=== PATIENT | female | born 1990 | race Hispanic/Latino ===

== ENCOUNTER → 2022-06-11 | Outpatient (CLI) | payer OTHER ==
[~2022-06-11] VITALS: Ht 165.1 cm; Wt 91.9 kg
[~2022-06-11] MED LIST: HOME MED LIST COMPLETE! XX SCH; PRENTAB9 PO
[2022-06-11 13:14] VITALS: BP 119/74
[2022-06-11 14:06] LABS: HEMATOCRIT 31.6 % (36.0-47.0); HEMOGLOBIN 10.6 g/dl (12.0-15.5); MEAN CORPUSCULAR HEMOGLOBIN 28.2 pg (27.0-33.0); MEAN CORPUSCULAR HGB CONC 33.5 g/dl (32.0-36.5); PLATELET COUNT, AUTOMATED 243 10^3/uL (150-450); RED BLOOD COUNT 3.76 10^6/uL (4.00-5.40); WHITE BLOOD COUNT 10.2 10^3/uL (4.0-10.0)
== END ==
LOC: M LDO 12:51
PROVIDERS: ATTEND Obstetrics & Gynecology
DX: O30.043 Twin pregnancy, dichorionic/diamniotic, third trimester (principal); O9A.213 Injury, poisoning and certain other consequences of external causes complicating pregnancy, third trimester; S30.0XXA Contusion of lower back and pelvis, initial encounter; W10.8XXA Fall (on) (from) other stairs and steps, initial encounter; Y92.9 Unspecified place or not applicable; O09.813 Supervision of pregnancy resulting from assisted reproductive technology, third trimester; Z3A.33 33 weeks gestation of pregnancy
CPT/HCPCS: 36415; 59025; 76815; 76820; 85027; 85460; G0463

== ENCOUNTER → 2022-06-26 | Outpatient (CLI) | payer OTHER ==
[~2022-06-26] MED LIST changes: -HOME MED LIST COMPLETE! XX SCH; +TUMS500C PO
== END ==
LOC: M WHC 13:08
PROVIDERS: ATTEND Obstetrics & Gynecology
DX: O30.043 Twin pregnancy, dichorionic/diamniotic, third trimester (principal); Z3A.33 33 weeks gestation of pregnancy

== ENCOUNTER 2022-06-28 12:11 | Outpatient (CLI) | payer OTHER ==
[2022-06-28] VITALS (7 sets, daily range): BP systolic 111–119; BP diastolic 53–82
[~2022-06-28] VITALS: Ht 165.1 cm; Wt 93.3 kg
[~2022-06-28 12:11] MED LIST changes: -TUMS500C PO
[2022-06-28] MEDS ORDERED: TUMS500C PO (13:16)
[2022-06-28] MEDS ORDERED: HOME MED LIST COMPLETE! XX SCH (13:20)
[2022-06-28 13:32] LABS: HEMATOCRIT 29.9 % (36.0-47.0); MEAN CORPUSCULAR HEMOGLOBIN 27.2 pg (27.0-33.0); MEAN CORPUSCULAR HGB CONC 33.4 g/dl (32.0-36.5); MEAN CORPUSCULAR VOLUME 81.5 fl (80.0-96.0); PLATELET COUNT, AUTOMATED 233 10^3/uL (150-450); RED BLOOD COUNT 3.67 10^6/uL (4.00-5.40); WHITE BLOOD COUNT 9.1 10^3/uL (4.0-10.0)
[2022-06-28 14:54] LABS: HEPATITIS B SURFACE ANTIGEN NEGATIVE (NEGATIVE); HIV 1&2 SCREEN CENTAUR NEGATIVE (NEGATIVE)
[2022-06-28] MEDS: BETAMETHASONE SOLUSPAN 6MG/ML 5ML VIAL (J0702 PER 3MG) IM SCH (16:07)
[2022-06-28] MEDS ORDERED: propofoL 200 MG/20 ML VIAL As Ordered ONE ×10 (19:20→20:03)
[2022-06-28] MEDS ORDERED: fentaNYL 100 MCG/2 ML INJECTION IV PRN (20:15)
[2022-06-28] MEDS ORDERED: LR 1,000 ML IV SCH (20:15)
[2022-06-28] MEDS ORDERED: oxyCODONE 5MG TAB PO PRN (20:15)
[2022-06-28] MEDS ORDERED: ONDANSETRON 4MG 2ML VIAL IV PRN (20:15)
[2022-06-28] MEDS ORDERED: TERBUTALINE SULFATE 1 MG/ML VIAL (J3105) SC STA (22:47)
[2022-06-29] VITALS (10 sets, daily range): BP systolic 90–125; BP diastolic 51–66
[2022-06-29] MEDS ORDERED: ONDANSETRON 4MG 2ML VIAL IV STA (04:03)
[2022-06-29] MEDS ORDERED: PROMETHAZINE 25MG/ML 1ML VIAL IV ONE (05:05)
[2022-06-29] MEDS ORDERED: LACTATED RINGER'S 1000 ML IV STA (10:38)
[2022-06-29] MEDS ORDERED: TERBUTALINE SULFATE 1 MG/ML VIAL (J3105) SC ONE (10:45)
[2022-06-29] MEDS: BETAMETHASONE SOLUSPAN 6MG/ML 5ML VIAL (J0702 PER 3MG) IM SCH (15:53)
== END 2022-06-29 16:05 | disposition home or self-care (01) ==
LOC: M LDO 12:11
PROVIDERS: ATTEND Registered Nurse
DX: O30.043 Twin pregnancy, dichorionic/diamniotic, third trimester (principal); O34.33 Maternal care for cervical incompetence, third trimester; Z3A.35 35 weeks gestation of pregnancy
CPT/HCPCS: 36415; 59025; 59871; 76815; 85027; 86762; 87340; 87389; 87635; 96361; 96372; 96374; 96375; G0378; G0463; J0702; J2405; J2550; J3105

== ENCOUNTER 2022-07-01 01:11 | Outpatient (CLI) | payer OTHER ==
[~2022-07-01] VITALS: Ht 165.1 cm; Wt 96.2 kg
[~2022-07-01 01:11] MED LIST changes: +TUMS500C PO
[2022-07-01] MEDS ORDERED: HOME MED LIST COMPLETE! XX SCH (01:15)
[2022-07-01 01:22] VITALS: BP 134/73
[2022-07-01 02:13] VITALS: BP 115/64
== END 2022-07-01 04:19 | disposition home or self-care (01) ==
LOC: M LDO 01:11
PROVIDERS: ATTEND Obstetrics & Gynecology
DX: O47.03 False labor before 37 completed weeks of gestation, third trimester (principal); Z3A.35 35 weeks gestation of pregnancy; O30.043 Twin pregnancy, dichorionic/diamniotic, third trimester
CPT/HCPCS: 59025; 76815; G0463

== ENCOUNTER 2022-07-02 03:45 | Inpatient (IN) | payer OTHER ==
[2022-07-02] VITALS (47 sets, daily range): BP systolic 94–157; BP diastolic 53–110
[~2022-07-02] VITALS: Ht 165.1 cm; Wt 96.2 kg
[2022-07-02] MEDS ORDERED: PENICILLIN G POTASSIUM 5 MU IV 5 MU in D5W MINI-BAG PLUS 100 ML IV STA (03:58)
[2022-07-02] MEDS ORDERED: LACTATED RINGER'S 1000 ML IV STA (03:58)
[2022-07-02] MEDS ORDERED: METHYLERGONOVINE MALEATE 0.2 MG/ML VIAL (J2210) IM PRN (04:00)
[2022-07-02] MEDS ORDERED: LR 1,000 ML IV SCH (04:00)
[2022-07-02] MEDS ORDERED: OXYTOCIN DRIP 30 UNITS in IV 1 EA IV PRN ×4 (04:00)
[2022-07-02] MEDS ORDERED: TRANEXAMIC ACID INJection 1,000 MG in NS 100 ML IV PRN (04:00)
[2022-07-02] MEDS ORDERED: LIDOCAINE 1% MDV 20ML VIAL INFIL PRN (04:00)
[2022-07-02 04:54] LABS: HEMOGLOBIN 10.3 g/dl (12.0-15.5); MEAN CORPUSCULAR HEMOGLOBIN 27.1 pg (27.0-33.0); MEAN CORPUSCULAR HGB CONC 32.2 g/dl (32.0-36.5); MEAN CORPUSCULAR VOLUME 84.2 fl (80.0-96.0); PLATELET COUNT, AUTOMATED 245 10^3/uL (150-450); WHITE BLOOD COUNT 14.5 10^3/uL (4.0-10.0)
[2022-07-02] MEDS ORDERED: FENTANYL/ROPIVACAINE/NACL BAG 100 ML EPIDURAL SCH (05:40)
[2022-07-02] MEDS ORDERED: diphenhydrAMINE 50MG/ML VIAL (J1200) IV PRN (05:40)
[2022-07-02] MEDS ORDERED: ePHEDrine SULFATE 25 MG/5 ML(5MG/ML) SYRINGE IVP PRN (05:40)
[2022-07-02] MEDS ORDERED: NALOXONE INJ 0.4MG/1ML VIAL (J2310 PER 1MG) IV PRN (05:40)
[2022-07-02] MEDS ORDERED: EPIDURAL/PCA KEYS XX PRN (05:40)
[2022-07-02] MEDS ORDERED: LR 500 ML IV PRN (05:40)
[2022-07-02] MEDS ORDERED: ONDANSETRON 4MG 2ML VIAL IV PRN (05:40)
[2022-07-02] MEDS ORDERED: PEN G POT 3,000,000 UNIT/50 ML 3,000,000 UNIT in IV 1 EA IV SCH (08:30)
[2022-07-02] MEDS ORDERED: OXYTOCIN 30 UNITS IN 0.9% NaCl 500ML IV BAG (J2590) As Ordered ONE (10:19)
[2022-07-02] MEDS ORDERED: HOME MED LIST COMPLETE! XX SCH (12:05)
[2022-07-02] MEDS ORDERED: DOCUSATE SODIUM 100MG CAPSULE PO PRN (12:50)
[2022-07-02] MEDS ORDERED: DIBUCAINE 1% OINTMENT 30GM TOP PRN (12:50)
[2022-07-02] MEDS ORDERED: RHOGAM 300 MCG (1500 IU) INJ (J2790) IM SCH (12:50)
[2022-07-02] MEDS: ACETAMINOPHEN TAB 650MG DOSE (2X325MG) PO PRN (16:13)
[2022-07-02] MEDS: IBUPROFEN 800 MG TAB PO PRN (20:03)
[2022-07-03 06:00] VITALS: BP 116/65
[2022-07-03] MEDS: ACETAMINOPHEN TAB 650MG DOSE (2X325MG) PO PRN ×2 (07:41→20:12)
[2022-07-03] MEDS: PRENATAL VITAMINS CHEWABLE TABLET PO SCH (08:05)
[2022-07-03] MEDS ORDERED: INFLUENZA QUADRIVALENT PF VACCINE 0.5ML SYRINGE IM.IMMUN ONE (11:00)
[2022-07-03] MEDS: IBUPROFEN 800 MG TAB PO PRN (15:04)
[2022-07-03 18:00] VITALS: BP 119/76
[2022-07-04] MEDS ORDERED: MEASLES,MUMPS,RUBELLA VACCINE INJ (MMR-II) (90707) SC.IMMUN ONE (09:00)
[2022-07-04] MEDS ORDERED: INFLUENZA QUADRIVALENT PF VACCINE 0.5ML SYRINGE IM.IMMUN ONE (09:00)
[2022-07-04] MEDS: PRENATAL VITAMINS CHEWABLE TABLET PO SCH (09:25)
== END 2022-07-04 11:36 | disposition home or self-care (01) | DRG 805 ==
LOC: M LDI 03:45 → M OBS 14:30
PROVIDERS: ADMIT Obstetrics & Gynecology; ATTEND Registered Nurse
PROC: 10E0XZZ Delivery of Products of Conception, External Approach (ICD-10-PCS; principal; 2022-07-02)
PROC: 10907ZC Drainage of Amniotic Fluid, Therapeutic from Products of Conception, Via Natural or Artificial Opening (ICD-10-PCS; 2022-07-02)
PROC: 0HQ9XZZ Repair Perineum Skin, External Approach (ICD-10-PCS; 2022-07-02)
PROC: 0UQGXZZ Repair Vagina, External Approach (ICD-10-PCS; 2022-07-02)
DX: O30.043 Twin pregnancy, dichorionic/diamniotic, third trimester (principal); Z37.2 Twins, both liveborn; O60.14X1 Preterm labor third trimester with preterm delivery third trimester, fetus 1; O60.14X2 Preterm labor third trimester with preterm delivery third trimester, fetus 2; O34.33 Maternal care for cervical incompetence, third trimester; O99.824 Streptococcus B carrier state complicating childbirth; Z3A.35 35 weeks gestation of pregnancy; O70.0 First degree perineal laceration during delivery; O9A.22 Injury, poisoning and certain other consequences of external causes complicating childbirth; T19.3XXD Foreign body in uterus, subsequent encounter

== ENCOUNTER → 2022-07-02 | Outpatient (CLI) | payer OTHER | LOC: M LDO 03:45 | PROVIDERS: ATTEND Obstetrics & Gynecology | DX: O30.043 Twin pregnancy, dichorionic/diamniotic, third trimester (principal); Z3A.35 35 weeks gestation of pregnancy ==